=== PATIENT | male | born 1955 | race Hispanic/Latino ===

== ENCOUNTER 2020-07-04 09:44 | Outpatient (CLI) | payer MEDICARE, BC ==
--- NOTE | 2020-07-04 10:22 | RAD ---
EXAM: XR Cervical Spine 1 View PROVIDED CLINICAL HISTORY: Acute thoracic back pain COMPARISON: None FINDINGS: Lateral and swimmer views of the cervical spine submitted. Cervical and visualized thoracic alignment appears normal. Cervical and visualized thoracic vertebral body heights appear preserved. Disc space narrowing and endplate degenerative changes are conspicuous at C5-6 and C6-7. IMPRESSION: Cervical disc degenerative change.
--- NOTE | 2020-07-04 10:24 | RAD ---
EXAM: XR Thoracic Spine 2 View PROVIDED CLINICAL HISTORY: Acute thoracic back pain COMPARISON: None FINDINGS: Thoracic alignment appears normal. Thoracic vertebral body heights appear preserved. Extensive multil evel thoracic spondylosis with changes of DISH. No radiographic evidence for fracture. Pedicles appear intact. No lytic or blastic bony lesions are radiographically apparent. IMPRESSION: Extensive multilevel thoracic spondylosis and changes of DISH.
== END 2020-07-04 09:45 | disposition home or self-care (01) ==
LOC: BICRAD 09:44
PROVIDERS: ATTEND Family Medicine
DX: M54.6 Pain in thoracic spine (principal); M47.814 Spondylosis without myelopathy or radiculopathy, thoracic region; M47.812 Spondylosis without myelopathy or radiculopathy, cervical region; R10.11 Right upper quadrant pain
CPT/HCPCS: 72020; 72070; 80053; 85025